=== PATIENT | female | born 1985 | race Hispanic/Latino ===

== ENCOUNTER 2022-05-14 16:27 | Emergency (ER) | payer MEDICAID, OTHER ==
[~2022-05-14] VITALS: Ht 144.8 cm; Wt 86.4 kg
[2022-05-14] MEDS ORDERED: LISI20TA33 PO (16:42)
[2022-05-14 18:11] LABS: BASO % 0.1 % (0.0-1.0); EOS % 0.3 % (0.0-3.0); HEMATOCRIT 42.2 % (36.0-47.0); HEMOGLOBIN 13.9 g/dl (12.0-15.5); LYMPH # 0.9 10^3/uL (1.5-5.0); LYMPH % 13.7 % (24.0-44.0); MEAN CORPUSCULAR HEMOGLOBIN 30.2 pg (27.0-33.0); MEAN CORPUSCULAR HGB CONC 32.9 g/dl (32.0-36.5); MEAN CORPUSCULAR VOLUME 91.7 fl (80.0-96.0); MONO # 0.3 10^3/uL (0.0-0.8); MONO % 4.4 % (2.0-8.0); NEUTROPHILS # 5.6 10^3/uL (1.5-8.5); NEUTROPHILS % 81.2 % (36.0-66.0); PLATELET COUNT, AUTOMATED 231 10^3/uL (150-450); WHITE BLOOD COUNT 6.9 10^3/uL (4.0-10.0)
[2022-05-14 18:36] LABS: LIPASE 34 U/L (12-53)
[2022-05-14 18:38] LABS: ALBUMIN 3.8 G/DL (3.2-5.2); ALKALINE PHOSPHATASE 82 U/L (46-116); ALT/SGPT 34 U/L (7.0-40); AST/SGOT 25 U/L (<34); BILIRUBIN,DIRECT 0.2 MG/DL (<0.4); BILIRUBIN,TOTAL 0.4 MG/DL (0.3-1.2); BLOOD UREA NITROGEN 13 MG/DL (9-23); CALCIUM LEVEL 8.3 MG/DL (8.5-10.1); CARBON DIOXIDE LEVEL 25 MMOL/L (20-31); CHLORIDE LEVEL 105 MMOL/L (98-107); CREATININE FOR GFR 0.56 MG/DL (0.55-1.30); GLOMERULAR FILTRATION RATE > 60.0 (>60); GLUCOSE, FASTING 102 MG/DL (60-100); POTASSIUM SERUM 4.3 MMOL/L (3.5-5.1); SODIUM LEVEL 138 MMOL/L (136-145); TOTAL PROTEIN 7.4 G/DL (5.7-8.2)
[2022-05-14 19:11] LABS: HCG, SERUM QUALITATIVE NEGATIVE (NEGATIVE)
[2022-05-14] MEDS ORDERED: ONDANSETRON 4MG ORAL DISINTEGRATING TAB PO ONE (21:00)
[2022-05-14] MEDS ORDERED: KETOROLAC 30 MG/ML 1ML VIAL IM ONE (21:00)
[2022-05-14] MEDS ORDERED: NS 1,000 ML IV ONE (21:40)
[2022-05-14 21:51] LABS: RSV AMPLIFICATION NEGATIVE (NEGATIVE)
[2022-05-14 22:31] LABS: CK-MB VALUE MASS < 1.0 NG/ML (<3.6)
[2022-05-14 22:32] LABS: CPK CREATINE PHOSPHOKINASE 103 U/L (34-145); MB/CK RELATIVE INDEX 0.97 (< OR =4)
[2022-05-14] MEDS ORDERED: ONDA4TAB6 PO (23:07)
[2022-05-14 23:51] VITALS: BP 124/74
== END 2022-05-14 23:58 | disposition home or self-care (01) ==
LOC: M ED 16:27
DX: R51.9 Headache, unspecified (principal); Z20.822 Contact with and (suspected) exposure to COVID-19; B34.8 Other viral infections of unspecified site; I49.3 Ventricular premature depolarization; R00.0 Tachycardia, unspecified; I10 Essential (primary) hypertension; Z79.811 Long term (current) use of aromatase inhibitors
CPT/HCPCS: 80048; 80076; 82550; 82553; 83690; 84703; 85025; 87631; 93005; 96360; 96361; 96372; 99284; J1885

== ENCOUNTER → 2023-04-04 | Outpatient (CLI) | payer OTHER ==
[~2023-04-04] MED LIST: LISI20TA33 PO; ONDA4TAB6 PO
== END ==
LOC: M WUC 13:00
PROVIDERS: ATTEND Nurse Practitioner Adult Health
DX: M54.50 Low back pain, unspecified (principal); N91.2 Amenorrhea, unspecified